=== PATIENT | female | born 1985 | race American Indian/Alaskan Native ===

== ENCOUNTER 2019-04-29 11:58 | Outpatient (CLI) | payer MEDICAID ==
[2019-04-29 12:56] VITALS: BP 107/52
== END 2019-04-29 13:30 | disposition home or self-care (01) ==
LOC: TRG 11:58
PROVIDERS: ATTEND Obstetrics & Gynecology
DX: O47.1 False labor at or after 37 completed weeks of gestation (principal); Z3A.40 40 weeks gestation of pregnancy
CPT/HCPCS: 59025

== ENCOUNTER 2019-05-03 08:59 | Inpatient (IN) | payer MEDICAID ==
[2019-05-03] MEDS ORDERED: PITOCin/NS 30 UNIT/500ML 30,000 MILLIUNITS/500 ML BAG IV ONE (10:18)
[2019-05-03] MEDS ORDERED: XYLOCAINE 2% INFILTRATI ONE (10:27)
[2019-05-03] MEDS ORDERED: STADOL IV PRN (10:27)
[2019-05-03] MEDS ORDERED: PHENERGAN PO PRN ×2 (10:27→21:30)
[2019-05-03] MEDS ORDERED: BRETHINE IVP PRN (10:27)
[2019-05-03] MEDS ORDERED: SUBLIMAZE IV PRN (10:27)
[2019-05-03] MEDS ORDERED: NARCAN 0.4 MG/1 ML IV PRN (10:27)
[2019-05-03] MEDS ORDERED: MINERAL OIL PO PRN (10:27)
[2019-05-03] MEDS ORDERED: BRETHINE SUB-Q PRN (10:27)
[2019-05-03] MEDS ORDERED: ZOFRAN IV PRN ×2 (10:27→21:30)
[2019-05-03] MEDS ORDERED: METHERGINE IM PRN ×2 (10:30→21:30)
[2019-05-03] MEDS ORDERED: CYTOTEC PR PRN ×2 (10:36→21:30)
[2019-05-03] MEDS ORDERED: PITOCin/NS 30 UNIT/500ML 30 UNITS/500 ML BAG IV SCH ×2 (11:00)
[2019-05-03] MEDS ORDERED: PITOCin/NS 20 UNIT/1000ML DRIP 20 UNITS/1,000 ML BAG IV SCH ×2 (11:00→22:00)
[2019-05-03] MEDS ORDERED: LACTATED RINGERS 1,000 ML IV SCH (11:00)
[2019-05-03 11:03] LABS: Basophils % (Auto) 1.1 % (0.0-1.8); Hemoglobin 11.9 gm/dl (10.1-14.3); Lymphocytes % (Auto) 30.4 % (13.4-35.0); Mean Corpuscular HGB Conc 32 % (30-34); Mean Corpuscular Volume 88 fl (79-97); Monocytes # (Auto) 0.3 K/mm3 (0.0-0.8); Monocytes % (Auto) 9.8 % (0.0-7.3); Platelet Count 187 K/mm3 (140-440); Red Blood Count 4.22 M/mm3 (3.65-5.03); Red Cell Distribution Width 14.6 % (13.2-15.2)
--- NOTE | 2019-05-03 13:10 | History and Physical Report ---
History of Present Illness Date of examination: 05/03/19 Date of admission: 05/03/19 08:59 Chief complaint: Here for induction History of present illness: Pt is a 34 yo at 41.0 wks EGA. She presents for an induction of labor for post-dates gestation. She reports positive FM and denies LOF or vaginal bleeding. She has received care with [facility]. Her course has been complicated by glucose intolerance without a diagnosis of gestational diabetes. She is GBS negative. She has elected fro a bilateral tubal ligation. Past History Past Medical History: no pertinent history Past Surgical History: no surgical history Social history: , lives with family - Obstetrical History Expected Date of Delivery: 04/26/19 Actual Gestation: 41 Week(s) 0 Day(s) : 4 Para: 3 Hx # Term Pregnancies: 3 Number of Living Children: 3 Medications and Allergies Allergies Allergy/AdvReac Type Severity Reaction Status Date / Time No Known Allergies Allergy Verified 05/03/19 10:16 Home Medications Medication Instructions Recorded Confirmed Last Taken Type Vit-Fe Fumar-FA [ 1 tab PO DAILY 05/03/19 05/03/19 05/02/19 20:00 History Vitamin] Active Meds: Active Medications Butorphanol Tartrate (Stadol) 2 mg IV Q2H PRN PRN Reason: Pain , Severe (7-10) Ephedrine Sulfate (Ephedrine Sulfate) 10 mg IV Q2M PRN PRN Reason: Hypotension Fentanyl (Sublimaze) 100 mcg IV Q2H PRN PRN Reason: Labor Pain Oxytocin/Sodium Chloride (Pitocin/Ns 30 Unit/500ml) 30,000 milliunits in 500 mls @ 2 mls/hr IV DIRECT ONE; Protocol Stop: 05/13/19 20:17 Last Titration: 05/03/19 12:45 Dose: 6 milliunits/min, 6 mls/hr Documented by: Lactated Ringer's (Lactated Ringers) 1,000 mls @ 125 mls/hr IV DIRECT WILSON Oxytocin/Sodium Chloride (Pitocin/Ns 20 Unit/1000ml Drip) 20 units in 1,000 mls @ 125 mls/hr IV DIRECT WILSON Oxytocin/Sodium Chloride (Pitocin/Ns 30 Unit/500ml) 30 units in 500 mls @ 2 mls/hr IV TITR WILSON; Protocol Methylergonovine Maleate (Methergine) 0.2 mg IM ONCE PRN PRN Reason: Uterine Bleeding Mineral Oil (Mineral Oil) 30 ml PO QHS PRN PRN Reason: Constipation Misoprostol (Cytotec) 800 mcg FL ONCE PRN PRN Reason: Uterine Bleeding Naloxone HCl (Narcan 0.4 Mg/1 Ml) 0.1 mg IV Q2MIN PRN PRN Reason: Res Rate </= 8 or 02 SAT < 92% Ondansetron HCl (Zofran) 4 mg IV Q8H PRN PRN Reason: Nausea And Vomiting Promethazine HCl (Phenergan) 25 mg PO Q6H PRN PRN Reason: Nausea And Vomiting Terbutaline Sulfate (Brethine) 0.25 mg SUB-Q ONCE PRN PRN Reason: Hyperstimulation/Hypertonicity Terbutaline Sulfate (Brethine) 0.25 mg IVP ONCE PRN PRN Reason: Hyperstimulation/Hypertonicity Review of Systems All systems: negative - Vital Signs Vital signs: Vital Signs Pulse BP 77 106/58 05/03/19 09:22 05/03/19 09:22 Temp Pulse Resp BP Pulse Ox 97.6 F 62 16 107/55 05/03/19 11:08 05/03/19 12:39 05/03/19 11:08 05/03/19 12:39 - Physical Exam Breasts: Positive: deferred Cardiovascular: Regular rate, Normal S1, Normal S2, No murmurs Lungs: Positive: Clear to auscultation, Normal air movement Abdomen: Positive: normal appearance (gravid), soft Genitourinary (Female): Positive: normal external genitalia Vagina: Positive: normal moisture Uterus: Positive: enlarged (gravid), normal contour Anus/Rectum: Positive: normal perianal skin Extremities: Positive: normal - Obstetrical FHR: auscultation normal, category 1 Uterine Contraction Monitor Mode: External Cervical Dilatation: 2 Cervical Effacement Percentage: 50 station: -2 Uterine Contraction Frequency (min): 3-4 Uterine Contraction Pattern: Regular Uterine Tone Measurement Phase: Contraction Uterine Contraction Intensity: Moderate Results Result Diagrams: 05/03/19 09:30 Abnormal lab results 05/03/19 Range/Units 09:30 WBC 3.3 L (4.5-11.0) K/mm3 [place] % (Auto) 9.8 H (0.0-7.3) % Lymph # 1.0 L (1.2-5.4) K/mm3 All other labs normal. Assessment and Plan 34 yo at 41.0 wks ega Initiate IOL for post-dates Pitocin titration as tolerated Consider AROM with advanced dilation GBS negative Pain meds and/or epidural as requested Anticipate
[2019-05-03] MEDS: LACTATED RINGERS 1,000 ML IV SCH ×2 (18:01→19:02)
[2019-05-03] MEDS ORDERED: MARCAINE 0.25% INFILTRATI ONE (18:11)
[2019-05-03] MEDS ORDERED: NARCAN 2 MG/2 ML IV PRN (18:31)
--- NOTE | 2019-05-03 18:35 | Anesthesia Consultation ---
Anesthesia Consult and Med Hx Date of service: 05/03/19 - Airway Anesthetic Teeth Evaluation: Good ROM Head & Neck: Adequate Mental/Hyoid Distance: Adequate Mallampati Class: Class II Intubation Access Assessment: Good - Pulmonary Exam CTA: Yes - Cardiac Exam Cardiac Exam: RRR - Pre-Operative Health Status ASA Pre-Surgery Classification: ASA2, Emergency Proposed Anesthetic Plan: Epidural - Pulmonary Hx Asthma: No COPD: No Hx Pneumonia: No - Cardiovascular System Hx Hypertension: No - Central Nervous System Hx Seizures: No Hx Psychiatric Problems: No - Endocrine Hx Renal Disease: No Hx End Stage Renal Disease: No Hx Hypothyroidism: No Hx Hyperthyroidism: No - Hematic Hx Anemia: No Hx Sickle Cell Disease: No - Other Systems Hx Alcohol Use: No
[2019-05-03] MEDS ORDERED: fentaNYL-BUPIV 2 MCG/ML-0.125% 200 MCG/100 ML BAG EPIDURAL SCH (19:00)
[2019-05-03] MEDS ORDERED: PHENERGAN PR PRN (21:30)
[2019-05-03] MEDS ORDERED: PERCOCET 5/325 PO PRN (21:30)
[2019-05-03] MEDS ORDERED: TUCKS PAD TP PRN (21:30)
[2019-05-03] MEDS ORDERED: BENADRYL PO PRN (21:30)
[2019-05-03] MEDS ORDERED: MILK OF MAGNESIA PO PRN (21:30)
[2019-05-03] MEDS ORDERED: TYLENOL PO PRN (21:30)
[2019-05-03] MEDS ORDERED: LANSINOH TP PRN (21:30)
[2019-05-03] MEDS ORDERED: DULCOLAX PR PRN (21:30)
--- NOTE | 2019-05-03 21:42 | Procedure Note ---
OB Delivery Note - Delivery Date of Delivery: 05/03/19 Surgeon: NICHO CRUZ ([facility]) Estimated blood loss: 200cc - Vaginal Delivery presentation: vertex Delivery position: OA Intrapartum events: meconium Delivery induction: oxytocin Delivery monitor: external FHT, external uterine Route of delivery: Delivery placenta: spontaneous Delivery cord: nuchal cord, 3 umbilical vessels Episiotomy: none Delivery laceration: 1st degree Delivery repair: vicryl Anesthesia: epidural Delivery comments: Excellent maternal effort resulted in spontaneous vaginal delivery of viable male at 2057. Shoulders followed easily after delivery of head. Somersaulted through nuchal cord. Cord clamped and cut by FOB 3 minutes after delivery. Placenta delivered spontaneously and intact at 2102. 1st degree perineal laceration noted, repaired to hemostasis with 2-0 Vicryl suture under epidural anesthesia. Apgars 8/9, weight 7lb 8oz. Pt had a syncopal episode upon use of the toilet an hour after . Vital signs stable, bleeding stable, no injuries. - A at 1 minute: 8 at 5 minutes: 9 Gender: Male
[2019-05-03] MEDS ORDERED: SODIUM CHLORIDE FLUSH SYRINGE 10 ML IV NR (22:00)
[2019-05-03] MEDS ORDERED: CYTOTEC VG ONE (22:00)
--- NOTE | 2019-05-03 23:18 | Post Anesthesia Evaluation ---
- Post Anesthesia Evaluation Patient Participated: Yes Airway Patent: Yes Stable Respiratory Function: Yes Nausea/Vomiting: No Temp > 96.8F: Yes Pain Manageable: Yes Adequeate Hydration: Yes Anesthesia Complications: No Block Receding Appropriately: Yes Patient on Ventilator: No
[2019-05-04] MEDS ORDERED: DERMOPLAST TP PRN (00:35)
[2019-05-04] MEDS: IBUPROFEN PO SCH ×5 (04:30→23:39)
--- NOTE | 2019-05-04 08:23 | Progress Note ---
Assessment and Plan A/P PPD1 s/p vasovagal syncope last evening -VSS , hem stable close monitor consider d/c home tomorrow Subjective - Subjective Date of service: 05/04/19 Principal diagnosis: s/p Patient reports: appetite normal, voiding normally, pain well controlled, flatus, ambulating normally : doing well Objective - Vital Signs Latest vital signs: Vital Signs Temp Pulse Resp BP Pulse Ox 05/04/19 00:26 65 105/45 99 05/03/19 23:57 72 108/56 05/03/19 23:56 75 99 05/03/19 23:52 75 109/59 05/03/19 23:51 74 99 05/03/19 23:47 86 116/64 05/03/19 23:46 85 99 05/03/19 23:42 64 106/57 05/03/19 23:41 65 100 05/03/19 23:37 61 111/54 05/03/19 23:36 70 100 05/03/19 23:32 71 110/53 05/03/19 23:31 74 100 05/03/19 23:27 72 118/55 05/03/19 23:26 72 100 05/03/19 23:23 78 118/53 05/03/19 23:21 77 100 05/03/19 23:17 75 109/63 05/03/19 23:16 79 99 05/03/19 23:13 84 108/75 05/03/19 23:11 79 100 05/03/19 23:07 48 L 104/58 05/03/19 23:06 58 L 100 05/03/19 23:03 52 L 106/56 05/03/19 23:02 59 L 99/55 05/03/19 23:01 54 L 98 05/03/19 23:00 79 88 05/03/19 22:45 57 L 122/59 05/03/19 22:43 63 98 05/03/19 22:38 61 99 05/03/19 22:33 62 99 05/03/19 22:30 63 121/61 05/03/19 22:28 64 99 05/03/19 22:23 61 99 05/03/19 22:18 67 98 05/03/19 22:14 67 116/62 08/15/19 22:13 69 99 05/03/19 22:08 71 98 05/03/19 22:03 69 99 05/03/19 21:59 66 116/66 05/03/19 21:58 67 99 05/03/19 21:53 69 100 05/03/19 21:48 69 98 05/03/19 21:45 67 113/68 05/03/19 21:43 75 98 05/03/19 21:38 66 98 05/03/19 21:33 68 98 05/03/19 21:30 84 115/67 05/03/19 21:28 93 H 98 05/03/19 21:23 68 98 05/03/19 21:18 66 98 05/03/19 21:16 71 123/60 05/03/19 21:13 69 98 05/03/19 21:08 71 98 05/03/19 21:03 76 98 05/03/19 20:58 86 99 05/03/19 20:55 44 L 05/03/19 20:53 78 99 05/03/19 20:48 69 99 05/03/19 20:46 61 116/64 05/03/19 20:43 64 100 05/03/19 20:38 70 100 05/03/19 20:33 70 99 05/03/19 20:30 61 117/62 05/03/19 20:28 70 99 05/03/19 20:23 67 100 05/03/19 20:18 68 98 05/03/19 20:15 65 120/62 05/03/19 20:13 65 99 05/03/19 20:08 68 99 05/03/19 20:03 64 99 05/03/19 20:01 66 120/65 05/03/19 19:58 72 99 05/03/19 19:53 64 99 05/03/19 19:48 66 99 05/03/19 19:46 64 118/67 05/03/19 19:43 62 99 05/03/19 19:38 65 100 05/03/19 19:33 67 99 05/03/19 19:31 69 122/74 05/03/19 19:28 63 99 05/03/19 19:23 57 L 100 05/03/19 19:18 57 L 99 05/03/19 19:16 61 117/61 05/03/19 19:13 64 98 05/03/19 19:08 61 100 05/03/19 19:03 57 L 100 05/03/19 18:58 64 99 05/03/19 18:53 66 99 05/03/19 18:48 63 99 05/03/19 18:46 65 114/59 05/03/19 18:43 65 99 05/03/19 18:41 72 112/61 05/03/19 18:39 71 108/58 05/03/19 18:38 71 100 05/03/19 18:37 67 109/60 05/03/19 18:35 60 108/59 05/03/19 18:33 59 L 106/57 99 05/03/19 18:31 66 108/59 05/03/19 18:29 97 F L 62 16 110/61 05/03/19 18:28 72 99 05/03/19 18:27 71 116/69 05/03/19 18:25 71 114/66 05/03/19 18:23 80 113/64 99 05/03/19 18:21 81 120/65 05/03/19 18:20 94 H 94 05/03/19 18:18 88 99 05/03/19 18:13 83 81 L 05/03/19 18:12 83 94 05/03/19 18:09 75 107/55 05/03/19 18:08 74 99 05/03/19 17:39 70 120/61 05/03/19 17:14 82 110/54 05/03/19 17:09 65 100/49 05/03/19 16:41 65 96/50 05/03/19 16:09 73 102/55 05/03/19 15:39 68 122/68 05/03/19 15:24 75 119/63 05/03/19 14:38 76 116/58 05/03/19 14:09 75 98/50 05/03/19 13:39 78 106/55 05/03/19 13:10 76 111/58 05/03/19 12:39 62 107/55 05/03/19 12:09 67 102/57 05/03/19 11:41 72 109/58 05/03/19 11:09 73 112/62 05/03/19 11:08 97.6 F 16 05/03/19 10:39 81 104/67 05/03/19 09:22 77 106/58 Intake and Output 05/03/19 05/04/19 05/04/19 23:59 07:59 15:59 Intake Total 1000 Output Total 1400 Balance 1000 -1400 Intake: IV 1000 Lactated Ringers 1,000 ml 1000 @ 125 mls/hr IV DIRECT WILSON Rx#:[id number] Output: Urine 1400 Void 1400 Other: Total, Output Amount 300 # Voids Void 3 Estimated Blood Loss 200 - Exam Breasts: Present: normal Cardiovascular: Present: Regular rate, Normal S1 Lungs: Present: Clear to auscultation, Normal air movement Abdomen: Present: normal appearance, soft, normal bowel sounds. Absent: distention, tenderness, guarding Vulva: both: normal Uterus: Present: normal, firm, fundal height below umbilicus. Absent: bogginess, tenderness Extremities: Present: normal Deep Tendon Reflex Grade: Normal +2 - Labs Labs: Abnormal lab results 05/03/19 Range/Units 09:30 WBC 3.3 L (4.5-11.0) K/mm3 [place] % (Auto) 9.8 H (0.0-7.3) % Lymph # 1.0 L (1.2-5.4) K/mm3
[2019-05-04 09:54] LABS: Hematocrit 31.2 % (30.3-42.9); Hemoglobin 10.3 gm/dl (10.1-14.3)
[2019-05-04] MEDS: PRENATAL VITAMIN PO SCH (10:42)
[2019-05-04] MEDS: FEOSOL PO SCH ×2 (10:42→21:00)
[2019-05-04] MEDS: COLACE PO SCH ×2 (10:42→21:00)
[2019-05-04] MEDS ORDERED: BOOSTRIX IM ONE (21:30)
[2019-05-05] MEDS: IBUPROFEN PO SCH (06:12)
[2019-05-05] MEDS: COLACE PO SCH (09:49)
[2019-05-05] MEDS: PRENATAL VITAMIN PO SCH (09:50)
[2019-05-05] MEDS: FEOSOL PO SCH (09:50)
--- NOTE | 2019-05-05 10:17 | Discharge Summary ---
Providers - Providers Date of Admission: 05/03/19 08:59 Date of discharge: 05/05/19 Attending physician: DESMOND SR Primary care physician: DESMOND SR Hospitalization Reason for admission: induction of labor Delivery: Episiotomy: none Incision: normal Other procedures: none complications: none Discharge diagnosis: IUP at term delivered baby: male Hospital course: unremarkable hospital course Condition at discharge: Good Disposition: DC-01 TO HOME OR SELFCARE Plan - Discharge Medications Prescriptions: Ferrous Sulfate [Ferrous Sulfate 324 MG] 324 mg PO BID #60 tablet. Ibuprofen [Motrin] 600 mg PO Q8H PRN #60 tablet PRN Reason: Pain - Provider Discharge Summary Additional instructions: [] Smoking cessation referral if applicable(refer to patient education folder for contact #) [] Refer to [facility]'s [facility] Booklet Call your doctor immediately for: * Fever > 100.5 * Heavy vaginal bleeding ( >1 pad per hour) * Severe persistent headache * Shortness of breath * Reddened, hot, painful area to leg or breast * Drainage or odor from incision. * Keep incision clean and dry at all times and follow doctor's instructions regarding bathing/showering - Follow up plan Follow up: DESMOND SR MD [Primary Care Provider] - 7 Days
--- NOTE | 2019-05-05 10:17 | Progress Note ---
Assessment and Plan A/P PPD2 s/p vasovagal syncope last evening -VSS , hem stable ekg normal d/c home Subjective - Subjective Date of service: 05/05/19 Principal diagnosis: s/p Patient reports: appetite normal, voiding normally, pain well controlled, flatus, ambulating normally : doing well Objective - Vital Signs Latest vital signs: Vital Signs Temp Pulse Resp BP BP Pulse Ox 05/05/19 07:30 98.5 F 18 112/57 05/05/19 00:55 98.3 F 74 18 100/53 99 05/04/19 16:55 98.6 F 82 18 112/64 Intake and Output 05/04/19 05/05/19 05/05/19 23:59 07:59 15:59 Intake Total 480 360 Balance 480 360 Intake: Oral 480 Intake, Free Water 360 Other: Total, Intake Amount 480 # Voids Void 3 - Exam Breasts: Present: normal Cardiovascular: Present: Regular rate, Normal S1 Lungs: Present: Clear to auscultation, Normal air movement Abdomen: Present: normal appearance, soft, normal bowel sounds. Absent: distention, tenderness, guarding Vulva: both: normal Uterus: Present: normal, firm, fundal height below umbilicus. Absent: bogginess, tenderness Extremities: Present: normal Deep Tendon Reflex Grade: Normal +2
[2019-05-05 18:20] VITALS: BP 111/66
== END 2019-05-05 16:30 | disposition home or self-care (01) | DRG 774 ==
LOC: LD 08:59 → OB 05-04 00:26
PROVIDERS: ADMIT Obstetrics & Gynecology; ATTEND Obstetrics & Gynecology
PROC: 10E0XZZ Delivery of Products of Conception, External Approach (ICD-10-PCS; principal; 2019-05-03)
PROC: 3E0234Z Introduction of Serum, Toxoid and Vaccine into Muscle, Percutaneous Approach (ICD-10-PCS; 2019-05-03)
PROC: 3E033VJ Introduction of Other Hormone into Peripheral Vein, Percutaneous Approach (ICD-10-PCS; 2019-05-03)
PROC: 3E0R3BZ Introduction of Anesthetic Agent into Spinal Canal, Percutaneous Approach (ICD-10-PCS; 2019-05-03)
PROC: 00HU33Z Insertion of Infusion Device into Spinal Canal, Percutaneous Approach (ICD-10-PCS; 2019-05-03)
PROC: 0HQ9XZZ Repair Perineum Skin, External Approach (ICD-10-PCS; 2019-05-03)
DX: O48.0 Post-term pregnancy (principal); O90.89 Other complications of the puerperium, not elsewhere classified; Z37.0 Single live birth; Z3A.41 41 weeks gestation of pregnancy; O77.0 Labor and delivery complicated by meconium in amniotic fluid; Z3A.00 Weeks of gestation of pregnancy not specified; Z23 Encounter for immunization; O70.0 First degree perineal laceration during delivery; O69.81X0 Labor and delivery complicated by cord around neck, without compression, not applicable or unspecified; R55 Syncope and collapse
CPT/HCPCS: 36415; 85014; 85018; 85025; 85027; 86592; 86850; 86900; 86901; 90471; 90715; 93005; 93010; G0378; J0595; J2590; J3010; J7120